=== PATIENT | female | born 1990 | race Caucasian/White ===

== ENCOUNTER 2017-02-06 20:22 | Emergency (ER) | payer BC ==
[~2017-02-06] VITALS: Ht 165.1 cm; Wt 90.9 kg
[2017-02-06 20:35] VITALS: TEMP 98.6
[2017-02-06 21:49] VITALS: BP 120/91; PULSE 88
== END 2017-02-06 21:50 | disposition home or self-care (01) ==
LOC: COL.ER 20:22
DX: S01.511A Laceration without foreign body of lip, initial encounter (principal); S71.131A Puncture wound without foreign body, right thigh, initial encounter; S01.431A Puncture wound without foreign body of right cheek and temporomandibular area, initial encounter; W54.0XXA Bitten by dog, initial encounter; Y92.007 Garden or yard of unspecified non-institutional (private) residence as the place of occurrence of the external cause

== ENCOUNTER 2017-02-15 10:47 | Emergency (ER) | payer BC ==
[~2017-02-15] VITALS: Ht 162.6 cm; Wt 104.6 kg
[2017-02-15 10:52] VITALS: BP 132/69; PULSE 71; TEMP 98.4
[2017-02-15] MEDS ORDERED: CEPHALEXIN500 M1 PO (10:56)
== END 2017-02-15 13:00 | disposition home or self-care (01) ==
LOC: COL.ER 10:47
DX: S01.85XA Open bite of other part of head, initial encounter (principal); S81.851A Open bite, right lower leg, initial encounter; Z23 Encounter for immunization; W54.0XXA Bitten by dog, initial encounter; Y92.410 Unspecified street and highway as the place of occurrence of the external cause

== ENCOUNTER 2017-02-18 08:06 | Outpatient (RCR) | payer BC ==
[~2017-02-18] VITALS: Ht 162.6 cm; Wt 104.5 kg
[~2017-02-18 08:06] MED LIST: CEPHALEXIN500 M1 PO
[2017-03-02 08:26] VITALS: BP 130/85; PULSE 98; TEMP 98.9
== END 2017-05-19 ==
LOC: EUO
DX: Z29.14 Encounter for prophylactic rabies immune globulin (principal); Z23 Encounter for immunization